=== PATIENT | female | born 1935 | race Two or more races ===

== ENCOUNTER 2017-12-01 09:03 | Outpatient (CLI) | payer OTHER ==
[~2017-12-01 09:03] MED LIST: ANTIVERT12.5 MG PO; COREG CR10 MG PO; ZOCOR5 MG PO
== END 2017-12-01 09:10 | disposition home or self-care (01) ==
LOC: LAB 09:03
DX: E78.2 Mixed hyperlipidemia (principal); D68.8 Other specified coagulation defects; N39.0 Urinary tract infection, site not specified; E03.8 Other specified hypothyroidism; E11.65 Type 2 diabetes mellitus with hyperglycemia

== ENCOUNTER 2018-07-30 08:23 | Outpatient (CLI) | payer OTHER | END 2018-07-30 08:34 | disposition home or self-care (01) | LOC: SONOGRAMA 08:23 → MAMO-SONO 09:15 | DX: N20.0 Calculus of kidney (principal) ==

== ENCOUNTER 2018-08-16 09:33 | Outpatient (CLI) | payer OTHER | END 2018-08-16 11:21 | disposition home or self-care (01) | LOC: TOM 09:33 | DX: M51.04 Intervertebral disc disorders with myelopathy, thoracic region (principal); M51.26 Other intervertebral disc displacement, lumbar region ==

== ENCOUNTER 2018-12-09 12:02 | Outpatient (CLI) | payer OTHER | END 2018-12-09 13:11 | disposition home or self-care (01) | LOC: LAB 12:02 | DX: N39.0 Urinary tract infection, site not specified (principal) ==

== ENCOUNTER → 2019-03-08 | Outpatient (CLI) | payer OTHER | END | disposition home or self-care (01) | LOC: NUCLEAR 07:00 | DX: I20.9 Angina pectoris, unspecified (principal) | CPT/HCPCS: 78452; 93017; A9500 ==

== ENCOUNTER 2021-06-28 08:00 | Outpatient (CLI) | payer OTHER | END 2021-06-28 08:10 | disposition home or self-care (01) | LOC: NUCLEAR 08:00 | PROVIDERS: ATTEND Internal Medicine Cardiovascular Disease | DX: I20.8 Other forms of angina pectoris (principal) | CPT/HCPCS: 78452; 93017; A9500; J0153 ==

== ENCOUNTER 2025-02-09 11:43 | Outpatient (CLI) | payer OTHER | END 2025-02-09 11:51 | disposition home or self-care (01) | LOC: MRI 11:43 | PROVIDERS: ATTEND Specialist | DX: S83.207A Unspecified tear of unspecified meniscus, current injury, left knee, initial encounter (principal); X58.XXXA Exposure to other specified factors, initial encounter; Y93.9 Activity, unspecified; Y92.9 Unspecified place or not applicable; Y99.9 Unspecified external cause status | CPT/HCPCS: 73720; Q9965; 73721 ==

== ENCOUNTER → 2025-03-28 07:07 | Outpatient (CLI) | payer OTHER | END | disposition home or self-care (01) | LOC: NUCLEAR 02-28 07:00 | PROVIDERS: ATTEND Internal Medicine | DX: I20.9 Angina pectoris, unspecified (principal) | CPT/HCPCS: 78452; 93017; A9500; J0153 ==